=== PATIENT | female | born 1985 | race Caucasian/White ===

== ENCOUNTER 2018-03-25 13:49 | Emergency (ER) | payer OTHER ==
[~2018-03-25] VITALS: Ht 160 cm; Wt 67.6 kg
[2018-03-25 14:02] VITALS: Ht 160 cm; Wt 67.6 kg
[2018-03-25 15:14] LABS: BASOPHIL % 0.2 % (0-2); PLATELET COUNT 280 x10^3mcL (130-400)
[2018-03-25 15:37] LABS: CALCIUM 8.6 mg/dL (8.5-10.1); CARBON DIOXIDE 26.7 mmol/L (21-32); CHLORIDE SERUM 105 mmol/L (98-107); CREATININE SERUM 0.7 mg/dL (0.6-1.0); GFR1 > 60 mL/min; GLUCOSE SERUM 118 mg/dL (74-106); POTASSIUM SERUM 3.7 mmol/L (3.5-5.1); SODIUM SERUM 141 mmol/L (136-145)
[2018-03-25 15:45] LABS: ALBUMIN 3.6 g/dL (3.4-5.0); ALKALINE PHOSPHATASE 104 U/L (46-116); ALT/SGPT 73 U/L (14-59); AST/SGOT 124 U/L (15-37); BILIRUBIN TOTAL 0.4 mg/dL (0.20-1.00); LIPASE 141 IU/L (73-393); TOTAL PROTEIN, SERUM 6.8 g/dL (6.4-8.2)
[2018-03-25 16:09] LABS: rbc morphology (normal/abnorm) ABNORMAL (NORMAL)
[2018-03-25 17:36] VITALS: BP 112/72
== END 2018-03-25 17:36 | disposition home or self-care (01) ==
LOC: ED 13:49
PROVIDERS: Emergency Medicine
DX: K80.20 Calculus of gallbladder without cholecystitis without obstruction (principal)
CPT/HCPCS: 36415; Q0092